=== PATIENT | male | born 1955 | race Caucasian/White ===

== ENCOUNTER 2020-01-09 07:54 | Day surgery (SDC) | payer OTHER, SELFPAY ==
[~2020-01-09] VITALS: Ht 190.5 cm; Wt 113.4 kg
[2020-01-09] MEDS ORDERED: LIDOCAINE 2% 100 MG/5 ML UJET TP ONE (10:04)
[2020-01-09] MEDS ORDERED: fentaNYL citrate 0.05 MG/ML VIAL ONE (10:04)
[2020-01-09] MEDS ORDERED: KETOROLAC 60 MG/2 ML VIAL IM ONE (10:09)
== END 2020-01-09 11:00 | disposition home or self-care (01) ==
LOC: MDS 07:54 → MMU 07:54 → MDS 11:00
PROVIDERS: ATTEND Internal Medicine Gastroenterology
DX: Z12.11 Encounter for screening for malignant neoplasm of colon (principal); D12.9 Benign neoplasm of anus and anal canal; Z20.828 Contact with and (suspected) exposure to other viral communicable diseases; Z79.899 Other long term (current) drug therapy
CPT/HCPCS: 45385; J1885; U0003; J3010